=== PATIENT | male | born 1995 | race Caucasian/White ===

== ENCOUNTER 2022-12-31 19:06 | Emergency (ER) | payer OTHER ==
[~2022-12-31] VITALS: Ht 182.9 cm; Wt 85.5 kg
[2022-12-31 19:06] VITALS: BP 126/73
[2022-12-31] MEDS ORDERED: ISOVUE-370 76% 100ML VIAL As Ordered ONE (20:28)
[2022-12-31 20:33] LABS: BASO % 0.6 % (0.0-1.0); EOS # 0.1 10^3/uL (0.0-0.5); EOS % 2.1 % (0.0-3.0); HEMATOCRIT 44.9 % (42.0-52.0); HEMOGLOBIN 15.3 g/dl (13.5-17.5); LYMPH % 37.2 % (24.0-44.0); MEAN CORPUSCULAR HEMOGLOBIN 30.4 pg (27.0-33.0); MEAN CORPUSCULAR HGB CONC 34.1 g/dl (32.0-36.5); MEAN CORPUSCULAR VOLUME 89.3 fl (80.0-96.0); MONO # 0.6 10^3/uL (0.0-0.8); MONO % 11.1 % (2.0-8.0); NEUTROPHILS # 2.6 10^3/uL (1.5-8.5); NEUTROPHILS % 48.6 % (36.0-66.0); PLATELET COUNT, AUTOMATED 187 10^3/uL (150-450); RED BLOOD COUNT 5.03 10^6/uL (4.30-6.10); WHITE BLOOD COUNT 5.3 10^3/uL (4.0-10.0)
[2022-12-31] MEDS ORDERED: COLA100C5 PO (21:50)
== END 2022-12-31 22:31 | disposition home or self-care (01) ==
LOC: M ED 19:06
DX: K59.00 Constipation, unspecified (principal); K31.84 Gastroparesis
CPT/HCPCS: 36415; 74021; 74177; 80047; 85025; 99283; Q9967